=== PATIENT | male | born 1995 | race Caucasian/White ===

== ENCOUNTER 2019-05-09 12:53 | Emergency (ER) | payer OTHER ==
[~2019-05-09] VITALS: Ht 185.4 cm; Wt 83.9 kg
--- NOTE | 2019-05-09 12:58 | NUR ---
I have terrible migraine RUSSELL woke up with one this am been vomiting since, pt aaox4, nad noted, -sob, pt on monitor, vss, pending md walton
[2019-05-09] MEDS ORDERED: KETOROLAC TROMETHAMINE INJ 30 MG/ML VIAL ONE (13:11)
[2019-05-09] MEDS ORDERED: METOCLOPRAMIDE HCL 10 MG/2 ML VIAL ONE (13:11)
[2019-05-09] MEDS ORDERED: diphenhydrAMINE HCL 50 MG/ML VIAL ONE (13:11)
[2019-05-09] MEDS ORDERED: IV NS 0.9% 1,000 ML IV ONE (13:30)
[2019-05-09] MEDS ORDERED: KETOROLAC TROMETHAMINE INJ 30 MG/ML VIAL IV ONE (13:30)
[2019-05-09] MEDS ORDERED: diphenhydrAMINE HCL 50 MG/ML VIAL IV ONE (13:30)
[2019-05-09] MEDS ORDERED: METOCLOPRAMIDE HCL 10 MG/2 ML VIAL IV ONE (13:30)
[2019-05-09] MEDS ORDERED: HYDROMORPHONE 1 MG/1 ML DISP.SYRIN ONE (13:56)
[2019-05-09] MEDS ORDERED: HYDROMORPHONE INJ 0.5 MG/0.5 ML SYRINGE IV ONE (14:00)
[2019-05-09 14:10] VITALS: BP 118/73
--- NOTE | 2019-05-09 15:00 | NUR ---
Patient discharged to home in stable condition. Written and verbal after care instructions given. Patient verbalizes understanding of instruction. IV removed. Catheter intact and site benign. Pressure and 4x4 applied to site. No bleeding noted.
== END 2019-05-09 15:01 | disposition home or self-care (01) ==
LOC: ER 13:00
DX: G43.909 Migraine, unspecified, not intractable, without status migrainosus (principal); R11.2 Nausea with vomiting, unspecified
CPT/HCPCS: 96361; 96374; 96375; 99283; A4216; J1170; J1200; J1885; J2765; J7030

== ENCOUNTER 2019-11-16 16:01 | Emergency (ER) | payer OTHER ==
[~2019-11-16] VITALS: Ht 185.4 cm; Wt 81.6 kg
[2019-11-16] MEDS ORDERED: KETOROLAC TROMETHAMINE INJ 30 MG/ML VIAL ONE (16:59)
[2019-11-16] MEDS ORDERED: METOCLOPRAMIDE HCL 10 MG/2 ML VIAL ONE (16:59)
[2019-11-16] MEDS ORDERED: diphenhydrAMINE HCL 50 MG/ML VIAL ONE (16:59)
[2019-11-16] MEDS ORDERED: diphenhydrAMINE HCL 50 MG/ML VIAL IV ONE (17:00)
[2019-11-16] MEDS ORDERED: IV NS 0.9% 500 ML BAG IV ONE (17:00)
[2019-11-16] MEDS ORDERED: KETOROLAC TROMETHAMINE INJ 30 MG/ML VIAL IV ONE (17:00)
[2019-11-16] MEDS ORDERED: METOCLOPRAMIDE HCL 10 MG/2 ML VIAL IV ONE (17:00)
--- NOTE | 2019-11-16 17:00 | NUR ---
patient came in to the er c/o migraine headache since this morning around 10am 7/10 pain scale. On room air, breathing evenly and unlabored. connected to the monitor and pulse ox. kept comfortable, will continue to monitor accordingly.
--- NOTE | 2019-11-16 18:03 | NUR ---
IV removed. Catheter intact and site benign. Pressure and 4x4 applied to site. No bleeding noted. Patient discharged to home in stable condition. Written and verbal after care instructions given. Patient verbalizes understanding of instruction.
[2019-11-16 18:04] VITALS: BP 121/84
== END 2019-11-16 18:05 | disposition home or self-care (01) ==
LOC: ER 16:07
DX: G43.909 Migraine, unspecified, not intractable, without status migrainosus (principal); R11.2 Nausea with vomiting, unspecified
CPT/HCPCS: 96361; 96374; 96375; 99284; J1200; J1885; J2765; J7030